=== PATIENT | female | born 1965 | race Caucasian/White ===

== ENCOUNTER → 2018-08-31 | Outpatient (CLI) | payer OTHER ==
--- NOTE | 2018-08-31 09:02 | Diagnostic Imaging Report ---
Right knee MRI without contrast. History: Knee pain. Internal derangement. Pain worse with running. Decreased range of motion. Comparison: None. Technique: Multiplanar multi-sequence MRI of the knee without contrast. Findings: Medial compartment: There is mild mid substance degeneration of the medial meniscus with mild fraying at the posterior periphery. No meniscal tear is seen. The medial compartmental articular cartilage surfaces are slightly thinned with regions of fraying and fissuring. The medial collateral ligament complex is intact. Lateral compartment: The lateral meniscus is intact. There is mild articular cartilage fraying and fissuring in the lateral compartment best seen on coronal series 5 image 18. The lateral collateral ligament complex is intact. Intercondylar notch: The ACL and PCL are intact. Patellofemoral compartment: No chondromalacia or patellar dislocation. Extensor mechanism: The quadriceps and patellar tendons are normal. Other findings: There is a joint effusion and synovitis. There is no acute fracture, subluxation or avascular necrosis. There is a lobulated septated Henson's cyst. There is mild superficial soft tissue edema about the knee most pronounced anteriorly. IMPRESSION: Mid substance degeneration of the medial meniscus with mild fraying at the posterior periphery. No meniscal tear is seen. Mild degenerative arthrosis in the medial and lateral compartments of the knee. Small joint effusion, mild synovitis, lobulated septated Henson's cyst and mild superficial soft tissue edema about the knee most pronounced anteriorly. Signed by: Dr. Pineda Villatoro M.D. on 08/31/2018 8:58 AM
== END ==
LOC: MRI 07:44
PROVIDERS: ATTEND Family Medicine
DX: M23.91 Unspecified internal derangement of right knee (principal)

== ENCOUNTER → 2020-02-05 | Outpatient (CLI) | payer OTHER ==
[~2020-02-05] MED LIST: GADOBENATE DIMEGLUMINE 1 ML IV ONE; IOPAMIDOL 300 MG/ML 15ML VIAL IT ONE; LIDOCAINE HCL 1% LOCAL INJ 20 ML VIAL ONE
--- NOTE | 2020-02-05 12:42 | Diagnostic Imaging Report ---
PROCEDURE: Arthrogram CLINICAL HISTORY: ^SPRAIN OF ROTATOR CUFF CAPSULE BABBITTER: Anand Cool DO, JD ANESTHESIA: Local lidocaine. DOSE INFORMATION - Ka,r: 5.5 mGy Estimated Blood Loss: < 5cc Samples: None Device: None PROCEDURE: The risks, benefits, and alternatives to the procedure were discussed with the patient/healthcare proxy. All questions were answered and written informed consent was obtained. A universal timeout was performed prior to starting the procedure. All elements of maximal sterile barrier technique, hand hygiene, skin preparation and sterile techniques were followed. Public Health Policy Analyst images were obtained. Following local 1% lidocaine anesthesia, a 22 gauge spinal needle was advanced to the joint space. Intra-articular positioning was confirmed with injection of 1cc Isovue contrast material. Subsequently, 10 mL of gadolinium arthrogram solution was administered to the joint (containing 7 mL normal saline, 3 mL Isovue, 0.1 mL Multihance gadolinium based contrast). The needle was removed. No immediate postoperative complication. Sterile dressing was placed. IMPRESSION: Successful right shoulder arthrogram. Signed by: Anand Cool MD on 02/05/2020 12:39 PM
--- NOTE | 2020-02-05 12:42 | Diagnostic Imaging Report ---
PROCEDURE: Arthrogram CLINICAL HISTORY: ^SPRAIN OF ROTATOR CUFF CAPSULE COMMUNITY DIRECTOR: Anand Cool DO, JD ANESTHESIA: Local lidocaine. DOSE INFORMATION - Ka,r: 5.5 mGy Estimated Blood Loss: < 5cc Samples: None Device: None PROCEDURE: The risks, benefits, and alternatives to the procedure were discussed with the patient/healthcare proxy. All questions were answered and written informed consent was obtained. A universal timeout was performed prior to starting the procedure. All elements of maximal sterile barrier technique, hand hygiene, skin preparation and sterile techniques were followed. Alternative Medicine Practitioner images were obtained. Following local 1% lidocaine anesthesia, a 22 gauge spinal needle was advanced to the joint space. Intra-articular positioning was confirmed with injection of 1cc Isovue contrast material. Subsequently, 10 mL of gadolinium arthrogram solution was administered to the joint (containing 7 mL normal saline, 3 mL Isovue, 0.1 mL Multihance gadolinium based contrast). The needle was removed. No immediate postoperative complication. Sterile dressing was placed. IMPRESSION: Successful right shoulder arthrogram. Signed by: Anand Cool MD on 02/05/2020 12:39 PM
--- NOTE | 2020-02-05 13:39 | Diagnostic Imaging Report ---
TECHNIQUE: Magnetic resonance imaging of the RIGHT SHOULDER was performed after intra-articular injection of contrast. COMPARISON: None available. HISTORY: Pain FINDINGS: MUSCLES AND TENDONS: Rotator Cuff: Tendons: Full thickness full width tear of the supraspinatus with full-thickness near full width tear of the infraspinatus. Retraction to the glenohumeral joint. Muscles: No focal muscle atrophy. Biceps Tendon: The long head of the biceps tendon is intact and within the intertubercular groove. GLENOHUMERAL JOINT: Glenoid Labrum: Superior labral tearing. Articular Cartilage: No focal defect. AC JOINT AND ACROMION: Mild hypertrophic degenerative changes of the acromioclavicular joint. The acromion is downsloping with subacromial spurring.. Bone: No acute fracture. Soft Tissues: Otherwise, the soft tissues appear unremarkable. IMPRESSION: Large rotator cuff tear with full-thickness tearing of the supraspinatus and infraspinatus tendon with retraction. High riding humeral head with subacromial spurring. Signed by: Dr. Paul Moreno M.D. on 02/05/2020 1:36 PM
== END ==
LOC: DX 11:44
PROVIDERS: ATTEND Orthopaedic Surgery
DX: S43.421A Sprain of right rotator cuff capsule, initial encounter (principal); M75.41 Impingement syndrome of right shoulder
CPT/HCPCS: 20610; 23350; 73222; A9577; J2001; Q9967

== ENCOUNTER → 2020-06-12 | Day surgery (SDC) | payer OTHER ==
[2020-06-06 12:45] LABS: BASOPHILS % 0.4 % (0.0-1.0); EOSINOPHILS # (AUTO) 0.1 (0.0-0.4); EOSINOPHILS % 1.1 % (0.0-6.0); HEMATOCRIT 41.1 % (34.2-44.1); HEMOGLOBIN 13.3 g/dL (12.0-16.0); LYMPHOCYTES # (AUTO) 2.6 (1.0-3.2); MEAN CORPUSCULAR HEMOGLOBIN 29.1 pg (28-32); MEAN CORPUSCULAR HGB CONC 32.4 g/dL (31-35); MEAN CORPUSCULAR VOLUME 89.9 fL (81-99); MONOCYTES # (AUTO) 0.6 (0.2-0.8); MONOCYTES % 7.5 % (4.4-11.3); NEUTROPHILS # (AUTO) 4.3 (2.1-6.9); NEUTROPHILS % 56.7 % (38.7-80.0); PLATELET COUNT 314 x10e3/uL (140-360); RED BLOOD COUNT 4.57 x10e6/uL (3.6-5.1); RED CELL DISTRIBUTION WIDTH 13.4 % (11.7-14.4)
[~2020-06-12] MED LIST changes: +ASPIR 8181 MG PO; +CEFAZOLIN SOD 1 GM/NS 50ML 100 ML IV ONE; +EPINEPHRINE 1 MG/ML 30ML VIAL ONE; +FOCALIN10 MG PO; -GADOBENATE DIMEGLUMINE 1 ML IV ONE; -IOPAMIDOL 300 MG/ML 15ML VIAL IT ONE; +KETOROLAC TROMETHAMINE 30 MG/ML VIAL ONE; -LIDOCAINE HCL 1% LOCAL INJ 20 ML VIAL ONE; +LIDOCAINE HCL 2% LOCAL INJ 5 ML SDV VIAL INJ ONE; +LIPITOR20 MG PO; +METOCLOPRAMIDE HCL 10 MG/2ML VIAL ONE; +ONDANSETRON HCL INJ 2MG/ML 2ML 2 MG/ML VIAL ONE; +PROPOFOL IV EMULSION 10 MG/ML 20 ML VIAL ONE; +ROCURONIUM BROMIDE 10 MG/ML 5ML VIAL IV ONE; +SEVOFLURANE INHAL SOLN 250 ML PEN BTL ONE; +SUGAMMADEX SODIUM 200 MG/2 ML VIAL IV ONE
[2020-06-12 09:10] VITALS: BP 129/75
--- NOTE | 2020-06-12 14:38 | Operative Report ---
DATE OF PROCEDURE: 06/12/2020 SURGEON: SANTO DOLAN MD LOCATION: Place of surgery is [facility]. HISTORY: Ms. Baron is a 55-year-old female, who has been having ongoing pain and weakness of her right shoulder secondary to underlying rotator cuff tear and labral tear along with right shoulder impingement, AC arthrosis. The patient had elected to forgo any further conservative treatment and proceed along with a diagnostic arthroscopy of her right shoulder. The risks and benefits of surgery have been outlined to her in the Orthopedic Clinic as well as again on the day of her surgery preop in the preop holding area consisting, but are not limited to the following infection, blood loss; nerve, blood vessel, or tendon injury; DVT; ongoing pain; stiffness. Again, I did make the patient aware of my concerns regarding the severity of the tear and then my entry in the marked retraction. There is a possibility that the tear itself may not be repairable and if she still has any ongoing functional deficits and/or pain, she may require further additional reconstructive surgery and one of those options being a reverse shoulder arthroplasty. The patient was seen and identified in preop holding area. The right shoulder was marked by myself. She was then given a preoperative regional block by Anesthesia and then brought back to the operative suite. Time-out was taken for Ms. Imelda Baron for diagnostic arthroscopy of her right shoulder. All were in agreement including nursing staff, Anesthesia, and myself. The patient was then transferred over to the operative table after she was given a successful general intubation anesthetic. The patient was then placed in the beach chair position with the right shoulder and upper arm fully exposed. The right shoulder was then sterilely prepped and draped in the usual standard fashion and the shoulder was then inflated with 30 mL of sterile saline. A 15 Bard-Denver blade was then used to make an incision for the posterior portal. The trocar was inserted and the arthroscopy camera was inserted into the posterior portal. Examination of the anterior compartment shows a significant type 2 labral tear noted extending from the 12 to 1 to down to around the 4 to 5 o'clock position. She had marked arthritic changes. She had also multiple rice/loose bodies noted throughout. She has underlying arthritic changes of the glenoid and humeral head with areas of cartilage fibrillation and delamination. Both the anterior as well as the lateral working portals were made using 15 Bard-Denver blade. Trocars were inserted. Beginning with the anterior compartment, I went ahead and did a synovectomy. The patient had marked amount of villonodular synovitis throughout the entire anterior shoulder joint. The villonodular synovitis was then removed using a 4.0 shaver. The patient had also multiple rice/loose bodies noted through both anterior as well as the accessory lateral portal. The rice/loose bodies were removed using an arthroscopic grasper and shaver. The rice/loose bodies ranged from approximately 2-3 mm to as large as 4-5 mm in size. Again, the patient had grade 2-3 changes of glenoid with grade 2 changes of humeral head. Chondroplasty was completed removing the fibrillated and delaminated cartilage down to a smooth contoured surface. The posterior compartment was also addressed through the posterior portal. The patient was also found to have a significant massive rotator cuff tear with marked retraction close to the level of the glenohumeral joint, which was noted. The patient had underlying marked arthrosis of the AC joint as well along with shoulder impingement. Attention was then redirected back to the labrum. The labral bony bed was then abraded using a hand rasp. Upon which time 2 Arthrex labral sutures were passed through one at around the 1 o'clock position and the second between the 3 and 4 o'clock position. The protective drill guide was then placed in and 2 drill holes were placed and then the labral anchors were then deployed and reattaching the labrum back down to the glenoid insertion. The anterior glenoid labral bumper was then reestablished. Upon probing the labral repair, it was found to be very stable. Upon range of motion of the shoulder, there was no instability noted. Attention was then redirected back to the subacromial space and AC joint. The right shoulder had a very short impingement and spur along the acromion. It was then addressed arthroscopically through both the posterior and lateral portal and an arthroscopic acromioplasty. A subacromial decompression was carried out using a 4.0 bur and shaver. Attention was then directed to the distal clavicle. The arthroscopic distal clavicle resection was carried out using a 4.0 shaver and bur removing the degenerative meniscus as well, approximately 1 cm in total. Again, the attention was then turned back to rotator cuff tendon. The patient had a massive rotator cuff tear. I tried to undermine it arthroscopically as best as I can. Upon which time, I went ahead and made a small incision over the localized tear. Blunt dissection was carried down to the deltoid, a part of the anterior and lateral deltoid insertion were resected and tagged for later repair. Again, the rotator cuff tear was noted and markedly retracted. Using Allis, the tear itself was almost like in a Y configuration. I went ahead and proceeded on using an Allis clamp. I was able to retrieve the retracted tendon, and the first thing I did was repair the first Y limb of the rotator cuff tear, reapproximating it using 1 Ethibond suture. The second arm of the tear, i.e., the 2nd arm of the Y configuration, was then repaired in a similar fashion. I then was able to bring the entire rotator cuff tendon close back to its bone insertion. A Mitek 6.5 Healix anchor was then deployed after the punch was completed and the 4 pairs of suture limbs were passed through the rotator cuff tear, reattaching it back down to as close as to its bony insertion. I went ahead and augmented the repair [id number] as well using 1 Ethibond and I was able to obtain nearly 90% to 95% coverage of the humeral head compared to prior to the repair. Upon range of motion testing, the rotator cuff reconstruction and repair was found to be stable. Copious irrigation was then carried out of the entire wound. First, second, and final counts were found to be correct. Deep layer closure was done beginning retesting the anterior lateral deltoid back to the bone insertion with 1 Ethibond and then 0 Vicryl, 2-0 Vicryl. Skin was reapproximated using jonathan. The patient was placed in a shoulder abduction immobilizer and then subsequently extubated and transferred to PACU in stable condition. PREOPERATIVE DIAGNOSES: 1. Right shoulder rotator cuff tear. 2. Right shoulder labral tear. 3. Right shoulder impingement, acromioclavicular arthrosis. 4. Right shoulder degenerative joint disease. POSTOPERATIVE DIAGNOSES: 1. Type 2 labral tear of the right shoulder. 2. Complete massive rotator cuff tear of the right shoulder to include the supraspinatus, infraspinatus, subscapularis, and part of the teres. 3. Villonodular tenosynovitis of the right shoulder. 4. Right shoulder impingement, acromioclavicular arthrosis. 5. Multiple rice/loose bodies of the right shoulder. PROCEDURES: Diagnostic arthroscopy of the right shoulder with the followin. Type 2 labral repair of the right shoulder with the use of two Arthrex 2.9 labral anchors. 2. Arthroscopic subacromial decompression, i.e., acromioplasty. 3. Arthroscopic distal clavicle resection, i.e., Emeterio procedure. 4. Arthroscopic synovectomy for villonodular synovitis of the right shoulder. 5. Arthroscopic removal of rice/loose bodies of the right shoulder. 6. Mini open rotator cuff reconstruction and repair of the rotator cuff tear of the right shoulder with the use of a 6.5, Mitek Healix anchor as well as a [id number] repair: Supraspinatus, infraspinatus, subscapularis, and teres minor. ANESTHESIA: General and regional block. ESTIMATED BLOOD LOSS: Less than 10 mL. SPECIMENS: Synovial rice body and bone and soft tissue. COMPLICATIONS: None. CONDITION: Stable to PACU. The patient is seen in PACU. Dressing is clean and dry. Cap refill is brisk. Pain was well controlled. The intraoperative findings were reviewed and discussed with her son. Discharge and wound care instructions were given. The patient discharged home with Wright 10 as well as Keflex, asked to follow up in Orthopedic Clinic in 12-14 days for wound check. The patient is to remain in the shoulder immobilizer all times, only removing for showering; however, given the severity of the tear, I did instruct the son that when the patient is showering, she needs to put a large row bath towel underneath her right axilla to prevent undue tension to the repair. All questions were answered and therefore in complete satisfaction as well as discharge instructions were discussed with nursing staff. MD JASSI LEBRON/TRACY /[id number]
== END | disposition home or self-care (01) ==
LOC: OR 05:05
PROVIDERS: ATTEND Orthopaedic Surgery
DX: S43.91XA Sprain of unspecified parts of right shoulder girdle, initial encounter (principal); S43.431A Superior glenoid labrum lesion of right shoulder, initial encounter; M75.41 Impingement syndrome of right shoulder; M25.511 Pain in right shoulder; Z88.2 Allergy status to sulfonamides; M19.011 Primary osteoarthritis, right shoulder; G56.01 Carpal tunnel syndrome, right upper limb; M18.11 Unilateral primary osteoarthritis of first carpometacarpal joint, right hand; E66.09 Other obesity due to excess calories; Z68.31 Body mass index [BMI] 31.0-31.9, adult; E78.5 Hyperlipidemia, unspecified; Z01.810 Encounter for preprocedural cardiovascular examination; Z01.812 Encounter for preprocedural laboratory examination; Z11.59 Encounter for screening for other viral diseases
CPT/HCPCS: 23120; 23420; 29820; 29826; 29827; 36415; 81025; 85025; 93005; C1713 ×2; J0690; J1885; J2001; J2405; J2704; J2765; U0002